=== PATIENT | male | born 1955 ===

== ENCOUNTER 2019-05-08 10:00 | Inpatient (IN) | payer OTHER ==
[~2019-05-08] VITALS: Ht 157.5 cm; Wt 54.4 kg
[2019-05-08] MEDS ORDERED: VASOTEC10 MG PO (13:15)
[2019-05-13] MEDS ORDERED: BACTRIM 400-801 EACH (16:00)
[2019-05-18] MEDS ORDERED: CEFADROXIL500 MG PO (16:03)
[2019-05-18] MEDS ORDERED: ELIQUIS2.5 MG PO (16:03)
[2019-05-18] MEDS ORDERED: PERCOCET 5-3251 EACH PO (16:03)
== END 2019-05-18 17:43 | DRG 470 ==
LOC: O/R 10:00 → SURH 05-16 07:48 → O/R 05-16 07:48 → SURH 05-16 09:45
PROVIDERS: ADMIT Orthopaedic Surgery
PROC: 0PSJ04Z Reposition Left Radius with Internal Fixation Device, Open Approach (ICD-10-PCS; 2019-05-16)
PROC: 0PUJ07Z Supplement Left Radius with Autologous Tissue Substitute, Open Approach (ICD-10-PCS; 2019-05-16)
PROC: 0PSL04Z Reposition Left Ulna with Internal Fixation Device, Open Approach (ICD-10-PCS; 2019-05-16)
PROC: 0PUL07Z Supplement Left Ulna with Autologous Tissue Substitute, Open Approach (ICD-10-PCS; 2019-05-16)
PROC: 0SRD0J9 Replacement of Left Knee Joint with Synthetic Substitute, Cemented, Open Approach (ICD-10-PCS; principal; 2019-05-16 09:45)
PROC: 0MNP0ZZ Release Left Knee Bursa and Ligament, Open Approach (ICD-10-PCS; 2019-05-16 09:45)
DX: M17.12 Unilateral primary osteoarthritis, left knee (principal); S52.692A Other fracture of lower end of left ulna, initial encounter for closed fracture; S52.532A Colles' fracture of left radius, initial encounter for closed fracture; D62 Acute posthemorrhagic anemia; M81.0 Age-related osteoporosis without current pathological fracture; M22.12 Recurrent subluxation of patella, left knee; F17.200 Nicotine dependence, unspecified, uncomplicated; I11.9 Hypertensive heart disease without heart failure; R73.01 Impaired fasting glucose; Z96.652 Presence of left artificial knee joint
CPT/HCPCS: 27447; 27425; 25609; 25652; 20902; C1776

== ENCOUNTER 2019-05-11 09:35 | Outpatient (CLI) | payer OTHER ==
[~2019-05-11 09:35] MED LIST: VASOTEC10 MG PO
== END 2019-05-11 09:45 | disposition home or self-care (01) ==
LOC: LAB 09:35
DX: D64.89 Other specified anemias (principal); D68.8 Other specified coagulation defects; E11.9 Type 2 diabetes mellitus without complications

== ENCOUNTER 2019-05-13 15:11 | Emergency (ER) | payer OTHER ==
[~2019-05-13] VITALS: Ht 157.5 cm; Wt 54.4 kg
[2019-05-13] MEDS ORDERED: BACTRIM 400-801 EACH (16:00)
== END 2019-05-13 19:27 | disposition home or self-care (01) ==
LOC: ER 15:11
DX: S52.182 Other fracture of upper end of left radius (principal); G89.11 Acute pain due to trauma; W18.39XA Other fall on same level, initial encounter; Y93.89 Activity, other specified; Y92.89 Other specified places as the place of occurrence of the external cause; Y99.8 Other external cause status